=== PATIENT | male | born 1950 | race Caucasian/White ===

== ENCOUNTER 2023-10-28 15:54 | Inpatient (IN) | payer BC, OTHER ==
[~2023-10-28 15:54] MED LIST: Iopamidol-370 76% 500 ML MDV (1 ML CHARGE) ONE
[2023-10-28 16:14] LABS: #Eosinphils 0.2 thou/uL (0.0-0.7); #Monocytes 1.3 thou/uL (0.11-0.59); #Neutrophils 7.8 thou/uL (1.40-6.50); %Basophils 0.4 % (0.0-1.0); %Eosinophils 2.2 % (0.0-10.0); %Lymphocytes 14.6 % (21.0-51.0); %Monocytes 11.5 % (0.0-10.0); %Neutrophils 70.8 % (42.0-75.0); Hematocrit 41.1 % (42.0-52.0); Hemoglobin 14.2 g/dL (14.0-18.0); Mean Corpuscular HGB CONC 34.5 g/dL (32.0-36.0); Mean Corpuscular Hemoglobin 31.9 pg (27.0-31.0); Mean Corpuscular Volume 92.4 fl (78.0-98.0); Mean Platelet Volume 9.5 fL (7.4-10.4); Platelet Count 223 10x3/uL (130-400); RBC Distribution Width 11.9 % (11.5-14.5); Red Blood Cell (RBC) Count 4.45 mill/uL (4.70-6.10)
[2023-10-28 16:23] LABS: INR-International Normal Ratio 1.1; Prothrombin Time 14.7 sec (12.0-14.7)
[2023-10-28 16:32] LABS: ALT (SGPT) 14 U/L (8-55); AST (SGOT) 19 U/L (5-34); Alkaline Phosphatase 42 U/L (40-110); Anion Gap 12 mmol/L (10-20); BUN (Urea Nitrogen) 19 mg/dL (8.4-25.7); Bilirubin, Total 0.7 mg/dL (0.2-1.2); Calc. Creatinine Clearance 0 mL/min (70-130); Calcium 8.7 mg/dL (7.8-10.44); Carbon Dioxide 26 mmol/L (23-31); Chloride 96 mmol/L (98-107); Estimated GFR 98; Globulin 2.7 g/dL (2.4-3.5); Glucose 101 mg/dL (83-110); Lipase 19 U/L (8-78); Potassium 3.3 mmol/L (3.5-5.1); Protein, Total 6.7 g/dL (5.8-8.1); Sodium 131 mmol/L (136-145)
[2023-10-28 16:36] LABS: Troponin I 0.041 ng/mL (< 0.028)
[2023-10-28] MEDS ORDERED: Acetaminophen 325 MG TAB PO PRN (17:17)
[2023-10-28] MEDS ORDERED: TETANUS, DIPHTHERIA TOX,ADULT (TDVAX) 0.5 ML VIAL IM ONE (17:17)
[2023-10-28] MEDS ORDERED: Glucagon 1 MG/ML KIT IM PRN (17:17)
[2023-10-28] MEDS ORDERED: Dextrose 50% Abboject 50 ML SYRINGE SLOW IVP PRN (17:17)
[2023-10-28] MEDS ORDERED: Dextrose 5% in Water 1,000 ML IV PRN (17:17)
[2023-10-28] MEDS ORDERED: Acetaminophen/Codeine 30-300mg Tablet PO PRN (17:17)
[2023-10-28] MEDS ORDERED: Electrolyte Replacement Protocol 1 EACH FS PRN (18:07)
[2023-10-28] MEDS ORDERED: Rib Fracture Protocol PO SCH (20:00)
[2023-10-28] MEDS: Morphine 2 MG/ML VIAL SLOW IVP PRN (21:27)
[2023-10-28] MEDS: Ondansetron PF 4 MG/2 ML Vial IVP PRN (21:28)
[2023-10-28] MEDS ORDERED: Cyclobenzaprine 10 MG TAB PO PRN (21:30)
[2023-10-28 22:23] VITALS: BMI 28.5
[2023-10-28] MEDS ORDERED: Sodium Chloride 0.65% Nasal 44 ML BOT EA NARE PRN (23:04)
[2023-10-28] MEDS ORDERED: hydrALAZINE 20 MG/ML VIAL SLOW IVP PRN (23:23)
[2023-10-28] MEDS: Ipratropium/Albuterol 3 ML NEB NEB SCH (23:31)
[2023-10-29] MEDS: traMADol HCl 50 MG TAB PO SCH ×4 (00:03→18:42)
[2023-10-29] MEDS: Acetaminophen 500 MG TAB PO SCH ×4 (00:03→18:42)
[2023-10-29] MEDS: Ibuprofen 200 MG TAB PO SCH ×4 (00:04→22:12)
[2023-10-29] MEDS ORDERED: Potassium Chloride 20 MEQ TAB PO SCH (00:15)
[2023-10-29] MEDS ORDERED: Electrolyte Replacement Protocol 1 EACH FS PRN (00:15)
[2023-10-29] MEDS: guaiFENesin ER 600 MG TAB PO SCH ×3 (00:24→22:12)
[2023-10-29 01:23] LABS: Troponin I 0.011 ng/mL (< 0.028)
[2023-10-29 01:26] LABS: Anion Gap 13 mmol/L (10-20); BUN (Urea Nitrogen) 19 mg/dL (8.4-25.7); Calc. Creatinine Clearance 112 mL/min (70-130); Calcium 9.3 mg/dL (7.8-10.44); Carbon Dioxide 26 mmol/L (23-31); Chloride 95 mmol/L (98-107); Estimated GFR 95; Glucose 135 mg/dL (83-110); Potassium 3.4 mmol/L (3.5-5.1); Sodium 131 mmol/L (136-145)
[2023-10-29 04:09] LABS: #Monocytes 1.5 thou/uL (0.11-0.59); %Basophils 0.2 % (0.0-1.0); %Eosinophils 0.1 % (0.0-10.0); %Lymphocytes 8.7 % (21.0-51.0); %Monocytes 14.3 % (0.0-10.0); %Neutrophils 76.3 % (42.0-75.0); Hematocrit 39.5 % (42.0-52.0); Hemoglobin 13.6 g/dL (14.0-18.0); Mean Corpuscular HGB CONC 34.4 g/dL (32.0-36.0); Mean Corpuscular Hemoglobin 31.5 pg (27.0-31.0); Mean Corpuscular Volume 91.4 fl (78.0-98.0); Mean Platelet Volume 9.3 fL (7.4-10.4); Platelet Count 205 10x3/uL (130-400); Red Blood Cell (RBC) Count 4.32 mill/uL (4.70-6.10); White Blood Cell (WBC) Count 10.5 10x3/uL (4.8-10.8)
[2023-10-29 04:37] LABS: ALT (SGPT) 18 U/L (8-55); AST (SGOT) 38 U/L (5-34); Albumin 3.8 g/dL (3.4-4.8); Alkaline Phosphatase 38 U/L (40-110); Anion Gap 10 mmol/L (10-20); BUN (Urea Nitrogen) 21 mg/dL (8.4-25.7); Bilirubin, Total 1.4 mg/dL (0.2-1.2); Calc. Creatinine Clearance 103 mL/min (70-130); Carbon Dioxide 28 mmol/L (23-31); Chloride 95 mmol/L (98-107); Estimated GFR 93; Globulin 2.7 g/dL (2.4-3.5); Glucose 106 mg/dL (83-110); Potassium 3.7 mmol/L (3.5-5.1); Protein, Total 6.5 g/dL (5.8-8.1); Sodium 129 mmol/L (136-145)
[2023-10-29] MEDS: Morphine 2 MG/ML VIAL SLOW IVP PRN ×2 (04:50→15:14)
[2023-10-29] MEDS: Ipratropium/Albuterol 3 ML NEB NEB SCH ×4 (06:58→23:41)
[2023-10-29] MEDS ORDERED: Magnesium 2 GM/50 ML(in water) 2 GM in Premix 1 BAG IVPB SCH (08:00)
[2023-10-29] MEDS ORDERED: Carvedilol 25 MG TAB PO SCH (08:00)
[2023-10-29] MEDS: Amiodarone 200 MG TAB PO SCH (08:17)
[2023-10-29] MEDS: Gabapentin 100 MG CAP PO SCH ×3 (08:17→22:13)
[2023-10-29] MEDS ORDERED: Oxymetazoline HCl 0.05% (30 ML BOT) NS SCH (09:00)
[2023-10-29] MEDS ORDERED: Furosemide 40 MG TAB PO SCH (09:00)
[2023-10-29] MEDS ORDERED: Sodium Chloride 0.9% 500 ML IV SCH (11:15)
[2023-10-29] MEDS: Sodium Chloride 0.9% 1,000 ML IV SCH (11:45)
[2023-10-29] MEDS: Ondansetron PF 4 MG/2 ML Vial IVP PRN (13:19)
[2023-10-29] MEDS ORDERED: Lidocaine 1% w/Epinephrine 1:100K 20 ML VIAL ONE (15:09)
[2023-10-29] MEDS: Scopolamine 1 mg/72 hour Patch TD SCH (15:15)
[2023-10-29] MEDS ORDERED: Lidocaine 1% w/Epinephrine 1:100K 20 ML VIAL IJ SCH (15:15)
[2023-10-29] MEDS ORDERED: Azelastine 137 MCG/NASAL Spray 30 ML NS PRN (18:01)
[2023-10-29] MEDS ORDERED: Indomethacin 25 mg Capsule PO PRN (18:01)
[2023-10-29] MEDS ORDERED: Non-Formulary Item 1 EACH (Celecoxib [Celebrex] 200 MG Capsule) PO SCH (21:00)
[2023-10-29] MEDS ORDERED: Amiodarone 200 MG TAB PO SCH (21:18)
[2023-10-29] MEDS: Polyethylene Glycol 3350 17 GM Packet PO SCH (22:11)
[2023-10-29] MEDS: Montelukast Sodium 10 mg Tablet PO SCH (22:13)
[2023-10-29] MEDS: Apixaban 5 MG TAB PO SCH (22:14)
[2023-10-29] MEDS: Zolpidem Tartrate 5 MG TAB PO SCH (22:14)
[2023-10-29] MEDS ORDERED: guaiFENesin ER 600 MG TAB PO SCH (23:19)
[2023-10-30] MEDS: traMADol HCl 50 MG TAB PO SCH ×5 (00:45→23:35)
[2023-10-30] MEDS: Acetaminophen 500 MG TAB PO SCH ×5 (00:46→23:36)
[2023-10-30] MEDS: Sodium Chloride 0.9% 1,000 ML IV SCH (02:36)
[2023-10-30] MEDS: Amiodarone 200 MG TAB PO SCH ×4 (03:11→21:27)
[2023-10-30 04:56] LABS: #Eosinphils 0.1 thou/uL (0.0-0.7); #Monocytes 1.4 thou/uL (0.11-0.59); #Neutrophils 8.5 thou/uL (1.40-6.50); %Basophils 0.2 % (0.0-1.0); %Eosinophils 0.8 % (0.0-10.0); %Lymphocytes 5.9 % (21.0-51.0); %Monocytes 12.8 % (0.0-10.0); %Neutrophils 79.8 % (42.0-75.0); Hematocrit 34.3 % (42.0-52.0); Hemoglobin 11.5 g/dL (14.0-18.0); Mean Corpuscular HGB CONC 33.5 g/dL (32.0-36.0); Mean Corpuscular Hemoglobin 31.9 pg (27.0-31.0); Mean Corpuscular Volume 95.3 fl (78.0-98.0); Mean Platelet Volume 9.9 fL (7.4-10.4); Platelet Count 175 10x3/uL (130-400); RBC Distribution Width 12.6 % (11.5-14.5); White Blood Cell (WBC) Count 10.6 10x3/uL (4.8-10.8)
[2023-10-30] MEDS: Morphine 2 MG/ML VIAL SLOW IVP PRN (05:00)
[2023-10-30] MEDS ORDERED: Mineral Oil ENEMA PR SCH (05:00)
[2023-10-30 05:33] LABS: Anion Gap 11 mmol/L (10-20); BUN (Urea Nitrogen) 24 mg/dL (8.4-25.7); Calc. Creatinine Clearance 95 mL/min (70-130); Calcium 8.7 mg/dL (7.8-10.44); Carbon Dioxide 28 mmol/L (23-31); Chloride 97 mmol/L (98-107); Estimated GFR 91; Glucose 92 mg/dL (83-110); Potassium 3.8 mmol/L (3.5-5.1); Sodium 132 mmol/L (136-145)
[2023-10-30] MEDS: Ibuprofen 200 MG TAB PO SCH (06:17)
[2023-10-30] MEDS: Ipratropium/Albuterol 3 ML NEB NEB SCH ×3 (06:29→19:13)
[2023-10-30] MEDS ORDERED: traMADol HCl 50 MG TAB PO PRN (08:30)
[2023-10-30] MEDS ORDERED: Lisinopril 20 MG TAB PO SCH (09:00)
[2023-10-30] MEDS: Clopidogrel Bisulfate 75 MG TAB PO SCH (09:12)
[2023-10-30] MEDS: Apixaban 5 MG TAB PO SCH (09:12)
[2023-10-30] MEDS: Polyethylene Glycol 3350 17 GM Packet PO SCH ×2 (09:12→21:22)
[2023-10-30] MEDS: Ezetimibe 10 MG TAB PO SCH (09:13)
[2023-10-30] MEDS: Gabapentin 100 MG CAP PO SCH ×3 (09:14→21:20)
[2023-10-30] MEDS: guaiFENesin ER 600 MG TAB PO SCH ×2 (09:14→21:21)
[2023-10-30] MEDS: Hydrochlorothiazide 25 MG TAB PO SCH (09:15)
[2023-10-30] MEDS: CeleCOXIB 100 MG CAP PO SCH (21:18)
[2023-10-30] MEDS: Montelukast Sodium 10 mg Tablet PO SCH (21:19)
[2023-10-30] MEDS: Zolpidem Tartrate 5 MG TAB PO SCH (21:20)
[2023-10-30] MEDS: Senokot 8.6 MG TAB PO SCH (21:21)
[2023-10-31 05:48] LABS: #Eosinphils 0.3 thou/uL (0.0-0.7); %Basophils 0.2 % (0.0-1.0); %Eosinophils 3.7 % (0.0-10.0); %Lymphocytes 9.1 % (21.0-51.0); %Monocytes 12.6 % (0.0-10.0); %Neutrophils 73.9 % (42.0-75.0); Hematocrit 33.5 % (42.0-52.0); Hemoglobin 11.2 g/dL (14.0-18.0); Mean Corpuscular HGB CONC 33.4 g/dL (32.0-36.0); Mean Corpuscular Hemoglobin 31.8 pg (27.0-31.0); Mean Corpuscular Volume 95.2 fl (78.0-98.0); Mean Platelet Volume 9.7 fL (7.4-10.4); Platelet Count 174 10x3/uL (130-400); RBC Distribution Width 12.6 % (11.5-14.5); Red Blood Cell (RBC) Count 3.52 mill/uL (4.70-6.10); White Blood Cell (WBC) Count 8.1 10x3/uL (4.8-10.8)
[2023-10-31 06:29] LABS: Anion Gap 11 mmol/L (10-20); BUN (Urea Nitrogen) 17 mg/dL (8.4-25.7); Calc. Creatinine Clearance 110 mL/min (70-130); Calcium 8.9 mg/dL (7.8-10.44); Carbon Dioxide 27 mmol/L (23-31); Chloride 95 mmol/L (98-107); Estimated GFR 95; Glucose 87 mg/dL (83-110); Potassium 3.7 mmol/L (3.5-5.1); Sodium 129 mmol/L (136-145)
[2023-10-31] MEDS: Acetaminophen 500 MG TAB PO SCH ×3 (06:46→17:28)
[2023-10-31] MEDS: traMADol HCl 50 MG TAB PO SCH ×3 (06:47→17:28)
[2023-10-31] MEDS: Ipratropium/Albuterol 3 ML NEB NEB SCH ×4 (07:40→19:55)
[2023-10-31] MEDS: Senokot 8.6 MG TAB PO SCH ×2 (08:59→20:55)
[2023-10-31] MEDS: Gabapentin 100 MG CAP PO SCH ×3 (08:59→20:57)
[2023-10-31] MEDS: Hydrochlorothiazide 25 MG TAB PO SCH (08:59)
[2023-10-31] MEDS: guaiFENesin ER 600 MG TAB PO SCH ×2 (08:59→20:55)
[2023-10-31] MEDS: Amiodarone 200 MG TAB PO SCH ×2 (09:00→20:56)
[2023-10-31] MEDS: Polyethylene Glycol 3350 17 GM Packet PO SCH ×2 (09:00→20:54)
[2023-10-31] MEDS: Ezetimibe 10 MG TAB PO SCH (09:00)
[2023-10-31] MEDS: Clopidogrel Bisulfate 75 MG TAB PO SCH (09:00)
[2023-10-31] MEDS: Zolpidem Tartrate 5 MG TAB PO SCH (20:54)
[2023-10-31] MEDS: CeleCOXIB 100 MG CAP PO SCH (20:55)
[2023-10-31] MEDS: Montelukast Sodium 10 mg Tablet PO SCH (20:55)
[2023-11-01] MEDS: Acetaminophen 500 MG TAB PO SCH ×5 (00:18→23:33)
[2023-11-01] MEDS: traMADol HCl 50 MG TAB PO SCH ×5 (00:18→23:32)
[2023-11-01] MEDS: Ipratropium/Albuterol 3 ML NEB NEB SCH ×4 (00:29→19:25)
[2023-11-01 05:30] LABS: #Eosinphils 0.3 thou/uL (0.0-0.7); #Monocytes 0.9 thou/uL (0.11-0.59); #Neutrophils 5.2 thou/uL (1.40-6.50); %Basophils 0.4 % (0.0-1.0); %Eosinophils 4.3 % (0.0-10.0); %Lymphocytes 10.5 % (21.0-51.0); %Monocytes 12.9 % (0.0-10.0); %Neutrophils 71.5 % (42.0-75.0); Mean Corpuscular HGB CONC 34.3 g/dL (32.0-36.0); Mean Corpuscular Hemoglobin 32.3 pg (27.0-31.0); Mean Corpuscular Volume 94.1 fl (78.0-98.0); Mean Platelet Volume 9.5 fL (7.4-10.4); Platelet Count 226 10x3/uL (130-400); RBC Distribution Width 12.3 % (11.5-14.5); Red Blood Cell (RBC) Count 3.72 mill/uL (4.70-6.10); White Blood Cell (WBC) Count 7.2 10x3/uL (4.8-10.8)
[2023-11-01 06:05] LABS: Anion Gap 11 mmol/L (10-20); BUN (Urea Nitrogen) 14 mg/dL (8.4-25.7); Calc. Creatinine Clearance 123 mL/min (70-130); Carbon Dioxide 31 mmol/L (23-31); Chloride 92 mmol/L (98-107); Estimated GFR 97; Glucose 92 mg/dL (83-110); Potassium 3.5 mmol/L (3.5-5.1); Sodium 130 mmol/L (136-145)
[2023-11-01] MEDS ORDERED: Potassium Chloride 20 MEQ TAB PO SCH (08:00)
[2023-11-01] MEDS: Senokot 8.6 MG TAB PO SCH ×2 (09:41→21:18)
[2023-11-01] MEDS: Amiodarone 200 MG TAB PO SCH ×2 (09:41→21:17)
[2023-11-01] MEDS: Polyethylene Glycol 3350 17 GM Packet PO SCH ×2 (09:41→21:17)
[2023-11-01] MEDS: guaiFENesin ER 600 MG TAB PO SCH ×2 (09:42→21:16)
[2023-11-01] MEDS: Clopidogrel Bisulfate 75 MG TAB PO SCH (09:42)
[2023-11-01] MEDS: Ezetimibe 10 MG TAB PO SCH (09:42)
[2023-11-01] MEDS: Gabapentin 100 MG CAP PO SCH ×3 (09:42→21:20)
[2023-11-01] MEDS: Scopolamine 1 mg/72 hour Patch TD SCH (12:07)
[2023-11-01] MEDS: Carvedilol 3.125 MG TAB PO SCH (17:00)
[2023-11-01] MEDS: Ondansetron PF 4 MG/2 ML Vial IVP PRN (17:00)
[2023-11-01] MEDS: Zolpidem Tartrate 5 MG TAB PO SCH (21:17)
[2023-11-01] MEDS: Montelukast Sodium 10 mg Tablet PO SCH (21:19)
[2023-11-01] MEDS: CeleCOXIB 100 MG CAP PO SCH (21:19)
[2023-11-02] MEDS: Ipratropium/Albuterol 3 ML NEB NEB SCH ×4 (00:46→19:42)
[2023-11-02] MEDS: Acetaminophen 500 MG TAB PO SCH ×3 (05:20→18:04)
[2023-11-02] MEDS: traMADol HCl 50 MG TAB PO SCH ×3 (05:21→18:04)
[2023-11-02 06:07] LABS: #Eosinphils 0.4 thou/uL (0.0-0.7); #Monocytes 0.8 thou/uL (0.11-0.59); #Neutrophils 3.6 thou/uL (1.40-6.50); %Basophils 0.7 % (0.0-1.0); %Eosinophils 6.5 % (0.0-10.0); %Lymphocytes 16.5 % (21.0-51.0); %Monocytes 14.1 % (0.0-10.0); %Neutrophils 61.7 % (42.0-75.0); Hematocrit 37.3 % (42.0-52.0); Hemoglobin 12.6 g/dL (14.0-18.0); Mean Corpuscular HGB CONC 33.8 g/dL (32.0-36.0); Mean Corpuscular Hemoglobin 31.7 pg (27.0-31.0); Mean Corpuscular Volume 93.7 fl (78.0-98.0); Mean Platelet Volume 9.2 fL (7.4-10.4); Platelet Count 249 10x3/uL (130-400); RBC Distribution Width 12.2 % (11.5-14.5); Red Blood Cell (RBC) Count 3.98 mill/uL (4.70-6.10); White Blood Cell (WBC) Count 5.9 10x3/uL (4.8-10.8)
[2023-11-02 06:31] LABS: Anion Gap 13 mmol/L (10-20); BUN (Urea Nitrogen) 14 mg/dL (8.4-25.7); Calc. Creatinine Clearance 126 mL/min (70-130); Calcium 9.2 mg/dL (7.8-10.44); Carbon Dioxide 28 mmol/L (23-31); Chloride 91 mmol/L (98-107); Estimated GFR 98; Glucose 104 mg/dL (83-110); Potassium 3.7 mmol/L (3.5-5.1); Sodium 128 mmol/L (136-145)
[2023-11-02] MEDS: Polyethylene Glycol 3350 17 GM Packet PO SCH ×2 (08:24→22:04)
[2023-11-02] MEDS: Senokot 8.6 MG TAB PO SCH ×2 (08:26→22:10)
[2023-11-02] MEDS: Gabapentin 100 MG CAP PO SCH ×3 (08:26→22:08)
[2023-11-02] MEDS: Amiodarone 200 MG TAB PO SCH ×2 (08:27→22:09)
[2023-11-02] MEDS: Ezetimibe 10 MG TAB PO SCH (08:27)
[2023-11-02] MEDS: Carvedilol 3.125 MG TAB PO SCH ×2 (08:27→17:08)
[2023-11-02] MEDS: guaiFENesin ER 600 MG TAB PO SCH ×2 (08:28→22:08)
[2023-11-02] MEDS: Furosemide 40 MG TAB PO SCH (08:28)
[2023-11-02] MEDS: Clopidogrel Bisulfate 75 MG TAB PO SCH (08:28)
[2023-11-02] MEDS: CeleCOXIB 100 MG CAP PO SCH (22:07)
[2023-11-02] MEDS: Zolpidem Tartrate 5 MG TAB PO SCH (22:07)
[2023-11-02] MEDS: Montelukast Sodium 10 mg Tablet PO SCH (22:11)
[2023-11-03] MEDS: Acetaminophen 500 MG TAB PO SCH ×3 (00:26→13:23)
[2023-11-03] MEDS: traMADol HCl 50 MG TAB PO SCH ×3 (00:26→13:23)
[2023-11-03] MEDS: Ipratropium/Albuterol 3 ML NEB NEB SCH ×3 (01:26→14:10)
[2023-11-03 04:24] LABS: #Basophils 0.1 thou/uL (0.0-0.2); #Eosinphils 0.5 thou/uL (0.0-0.7); #Neutrophils 4.7 thou/uL (1.40-6.50); %Basophils 0.7 % (0.0-1.0); %Eosinophils 6.2 % (0.0-10.0); %Lymphocytes 16.1 % (21.0-51.0); %Monocytes 13.5 % (0.0-10.0); Hematocrit 37.7 % (42.0-52.0); Hemoglobin 12.8 g/dL (14.0-18.0); Mean Corpuscular Hemoglobin 31.8 pg (27.0-31.0); Mean Corpuscular Volume 93.8 fl (78.0-98.0); Mean Platelet Volume 8.7 fL (7.4-10.4); Platelet Count 257 10x3/uL (130-400); RBC Distribution Width 12.2 % (11.5-14.5); Red Blood Cell (RBC) Count 4.02 mill/uL (4.70-6.10); White Blood Cell (WBC) Count 7.5 10x3/uL (4.8-10.8)
[2023-11-03 05:50] LABS: ALT (SGPT) 27 U/L (8-55); AST (SGOT) 20 U/L (5-34); Albumin 3.7 g/dL (3.4-4.8); Alkaline Phosphatase 46 U/L (40-110); Anion Gap 14 mmol/L (10-20); BUN (Urea Nitrogen) 15 mg/dL (8.4-25.7); Bilirubin, Total 1.2 mg/dL (0.2-1.2); Calc. Creatinine Clearance 110 mL/min (70-130); Calcium 9.4 mg/dL (7.8-10.44); Carbon Dioxide 28 mmol/L (23-31); Chloride 93 mmol/L (98-107); Estimated GFR 94; Globulin 3.5 g/dL (2.4-3.5); Glucose 85 mg/dL (83-110); Magnesium 2.2 mg/dL (1.6-2.6); Potassium 3.8 mmol/L (3.5-5.1); Protein, Total 7.2 g/dL (5.8-8.1); Sodium 131 mmol/L (136-145)
[2023-11-03] MEDS: Furosemide 40 MG TAB PO SCH (08:54)
[2023-11-03] MEDS: Ezetimibe 10 MG TAB PO SCH (08:54)
[2023-11-03] MEDS: Senokot 8.6 MG TAB PO SCH (08:54)
[2023-11-03] MEDS: Clopidogrel Bisulfate 75 MG TAB PO SCH (08:54)
[2023-11-03] MEDS: guaiFENesin ER 600 MG TAB PO SCH (08:54)
[2023-11-03] MEDS: Polyethylene Glycol 3350 17 GM Packet PO SCH (08:54)
[2023-11-03] MEDS: Carvedilol 3.125 MG TAB PO SCH (08:55)
[2023-11-03] MEDS: Gabapentin 100 MG CAP PO SCH (08:55)
[2023-11-03] MEDS: Amiodarone 200 MG TAB PO SCH (08:55)
[2023-11-03 16:02] VITALS: BP 140/78; TEMP 97.7
== END 2023-11-03 16:00 | disposition home or self-care (01) | DRG 199 ==
LOC: ERS 15:54 → SURG A 17:17 → 2NO 10-29 02:12
PROVIDERS: ADMIT Surgery; ATTEND Internal Medicine
PROC: 0W9930Z Drainage of Right Pleural Cavity with Drainage Device, Percutaneous Approach (ICD-10-PCS; principal; 2023-10-29)
DX: S27.0XXA Traumatic pneumothorax, initial encounter (principal); I21.4 Non-ST elevation (NSTEMI) myocardial infarction; S22.41XA Multiple fractures of ribs, right side, initial encounter for closed fracture; I50.22 Chronic systolic (congestive) heart failure; S22.21XA Fracture of manubrium, initial encounter for closed fracture; I48.20 Chronic atrial fibrillation, unspecified; Z66 Do not resuscitate; V89.2XXA Person injured in unspecified motor-vehicle accident, traffic, initial encounter; Z98.890 Other specified postprocedural states; I25.10 Atherosclerotic heart disease of native coronary artery without angina pectoris; Z95.1 Presence of aortocoronary bypass graft; Z95.5 Presence of coronary angioplasty implant and graft; I11.0 Hypertensive heart disease with heart failure; Z88.2 Allergy status to sulfonamides; Z88.8 Allergy status to other drugs, medicaments and biological substances; Z82.49 Family history of ischemic heart disease and other diseases of the circulatory system; E87.6 Hypokalemia; K59.00 Constipation, unspecified; E78.00 Pure hypercholesterolemia, unspecified; Z79.899 Other long term (current) drug therapy; Z79.01 Long term (current) use of anticoagulants; I25.5 Ischemic cardiomyopathy; I35.0 Nonrheumatic aortic (valve) stenosis
CPT/HCPCS: 36415; 36416; 70450; 71045; 71250; 71260; 72125; 74177; 80048; 80053; 83690; 83735; 84484; 85025; 85610; 93005; 93010; 93306; 94640; G0390; J2272; J2405; J3475; J7030; J7050; J7620; Q9967